=== PATIENT | female | born 1985 | race Hispanic/Latino ===

== ENCOUNTER 2019-05-13 08:58 | Emergency (ER) | payer MEDICAID ==
[2019-05-13 09:17] VITALS: BP 105/62
[2019-05-13 10:04] LABS: Hematocrit 34.6 % (30.3-42.9); Hemoglobin 11.3 gm/dl (10.1-14.3); Mean Corpuscular HGB Conc 33 % (30-34); Mean Corpuscular Volume 88 fl (79-97); Platelet Count 204 K/mm3 (140-440); Red Blood Count 3.95 M/mm3 (3.65-5.03)
[2019-05-13 10:07] LABS: Red Cell Distribution Width 20.6 % (13.2-15.2)
[2019-05-13 10:24] LABS: Calcium 10.1 mg/dL (8.4-10.2)
[2019-05-13 10:48] LABS: Total Cells Counted 100
[2019-05-13 10:49] LABS: Anisocytosis 1+; Band Neutrophils # (Manual) 2.2 K/mm3; Basophils % (Manual) 0 % (0.0-1.8); Eosinophils % (Manual) 0 % (0.0-4.3); Ovalocytes Few; Platelet Estimate Consistent w Auto
[2019-05-13] MEDS ORDERED: NACL 0.9% 1000 ML 1,000 ML IV ONE ×2 (11:02→11:40)
[2019-05-13] MEDS ORDERED: TORADOL IV ONE (11:02)
[2019-05-13] MEDS ORDERED: ZOFRAN IV ONE (11:02)
[2019-05-13] MEDS ORDERED: MORPHINE IV ONE (11:03)
--- NOTE | 2019-05-13 11:03 | Emergency Department Report ---
HPI - General Chief Complaint: Nausea/Vomiting/Diarrhea Time Seen by Provider: 05/13/19 11:02 - HPI HPI: 33 YO COMES TO ER CO N/V FOR 2 DAYS. NO FEVER OR CHILLS PER PT. DENIES ABD PAIN BUT STATES HER RIGHT SIDE HAS BEEN HURTING. DENIES DYSURIA OR FREQUENCY. LMP 9- 10 ED Past Medical Hx - Past Medical History Previous Medical History?: Yes Additional medical history: bradycardia, k stones - Surgical History Past Surgical History?: No Additional Surgical History: Ceasarean - Family History Family history: no significant - Social History Smoking Status: Current Every Day Smoker Substance Use Type: None - Medications Home Medications: Home Medications Medication Instructions Recorded Confirmed Last Taken Type Ciprofloxacin HCl [Ciprofloxacin 500 mg PO Q12HR #14 tab 05/13/19 Unknown Rx TAB] Ondansetron [Zofran Odt] 4 mg PO Q8HR PRN #10 tab.rapdis 05/13/19 Unknown Rx traMADol [Ultram] 50 mg PO Q6HR PRN #10 tablet 05/13/19 Unknown Rx ED Review of Systems ROS: Stated complaint: RT SIDE PAIN/VOMIT Other details as noted in HPI Comment: All other systems reviewed and negative Physical Exam - Physical Exam Vital Signs: Vital Signs 05/13/19 09:16 Temperature 98.5 F Pulse Rate 116 H Respiratory 16 Rate Blood Pressure 105/62 [Left] O2 Sat by Pulse 100 Oximetry Physical Exam: ALERT AND ORIENTED NO FOCAL DEFICIT NO CVA TENDERNESS S1S2 LUNGS CTA ABD SNT NO EDEMA OR JVD ED Course Vital Signs 05/13/19 09:16 Temperature 98.5 F Pulse Rate 116 H Respiratory 16 Rate Blood Pressure 105/62 [Left] O2 Sat by Pulse 100 Oximetry - Reevaluation(s) Reevaluation #1: 05/13/19 16:[address] CAROLYN VALLES DC HOME WITH OUTPT FOLLOW UP Reevaluation #2: HR 100 ON REEXAM ED Medical Decision Making - Lab Data Result diagrams: 05/13/19 09:41 05/13/19 09:41 - Radiology Data Radiology results: report reviewed, image reviewed - Medical Decision Making Vital Signs 05/13/19 09:16 Temperature 98.5 F Pulse Rate 116 H Respiratory 16 Rate Blood Pressure 105/62 [Left] O2 Sat by Pulse 100 Oximetry Vital Signs 05/13/19 09:16 Temperature 98.5 F Pulse Rate 116 H Respiratory 16 Rate Blood Pressure 105/62 [Left] O2 Sat by Pulse 100 Oximetry Labs 05/13/19 05/13/19 05/13/19 09:41 09:41 09:41 WBC 15.8 H RBC 3.95 Hgb 11.3 Hct 34.6 MCV 88 MCH 29 MCHC 33 RDW 20.6 H Plt Count 204 Add Manual Diff Complete Total Counted 100 Seg Neutrophils % X Ray Technician Seg Neuts % (Manual) 78.0 H Band Neutrophils % 14.0 Lymphocytes % (Manual) 4.0 L Reactive Lymphs % (Man) 0 Monocytes % (Manual) 4.0 Eosinophils % (Manual) 0 Basophils % (Manual) 0 Metamyelocytes % 0 Myelocytes % 0 Promyelocytes % 0 Blast Cells % 0 Nucleated RBC % Not Reportable Seg Neutrophils # Man 12.3 H Band Neutrophils # 2.2 Lymphocytes # (Manual) 0.6 L Abs React Lymphs (Man) 0.0 Monocytes # (Manual) 0.6 Eosinophils # (Manual) 0.0 Basophils # (Manual) 0.0 Metamyelocytes # 0.0 Myelocytes # 0.0 Promyelocytes # 0.0 Blast Cells # 0.0 WBC Morphology Not Reportable Hypersegmented Neuts Not Reportable Hyposegmented Neuts Not Reportable Hypogranular Neuts Not Reportable Smudge Cells Not Reportable Toxic Granulation Not Reportable Toxic Vacuolation Not Reportable Dohle Bodies Not Reportable Pelger-Huet Anomaly Not Reportable [place] Rods Not Reportable Platelet Estimate Consistent w auto Clumped Platelets Not Reportable Plt Clumps, EDTA Not Reportable Large Platelets Not Reportable Giant Platelets Not Reportable Platelet Satelliting Not Reportable Plt Morphology Comment Not Reportable RBC Morphology Not Reportable Dimorphic RBCs Not Reportable Polychromasia Not Reportable Hypochromasia Not Reportable Poikilocytosis Not Reportable Anisocytosis 1+ Microcytosis Not Reportable Macrocytosis Not Reportable Spherocytes Not Reportable Pappenheimer Bodies Not Reportable Sickle Cells Not Reportable Target Cells Not Reportable Tear Drop Cells Not Reportable Ovalocytes Few Helmet Cells Not Reportable [place] Bodies Not Reportable [place] Rings Not Reportable [place] Cells Not Reportable Bite Cells Not Reportable Crenated Cell Not Reportable Elliptocytes Not Reportable Acanthocytes (Spur) Not Reportable Rouleaux Not Reportable Hemoglobin C Crystals Not Reportable Schistocytes Not Reportable Malaria parasites Not Reportable Benitez Bodies Not Reportable Hem Pathologist Commnt No Sodium 137 Potassium 3.6 Chloride 98.8 Carbon Dioxide 23 Anion Gap 19 BUN 22 H Creatinine 1.4 H Estimated GFR 43 BUN/Creatinine Ratio 16 Glucose 119 H Calcium 10.1 Total Bilirubin 0.40 AST 20 ALT 12 Alkaline Phosphatase 98 Total Protein 7.3 Albumin 4.0 Albumin/Globulin Ratio 1.2 Lipase 5 L Urine Color Urine Turbidity Urine pH Ur Specific [place] Urine Protein Urine Glucose (UA) Urine Ketones Urine Blood Urine Nitrite Ur Reducing Substances Urine Bilirubin Urine Ictotest Urine Urobilinogen Ur Leukocyte Esterase Urine WBC (Auto) Urine RBC (Auto) U Epithel Cells (Auto) Urine Bacteria (Auto) Urine WBC Clumps Urine Mucus Urine HCG, Qual 05/13/19 11:03 WBC RBC Hgb Hct MCV MCH MCHC RDW Plt Count Add Manual Diff Total Counted Seg Neutrophils % Seg Neuts % (Manual) Band Neutrophils % Lymphocytes % (Manual) Reactive Lymphs % (Man) Monocytes % (Manual) Eosinophils % (Manual) Basophils % (Manual) Metamyelocytes % Myelocytes % Promyelocytes % Blast Cells % Nucleated RBC % Seg Neutrophils # Man Band Neutrophils # Lymphocytes # (Manual) Abs React Lymphs (Man) Monocytes # (Manual) Eosinophils # (Manual) Basophils # (Manual) Metamyelocytes # Myelocytes # Promyelocytes # Blast Cells # WBC Morphology Hypersegmented Neuts Hyposegmented Neuts Hypogranular Neuts Smudge Cells Toxic Granulation Toxic Vacuolation Dohle Bodies Pelger-Huet Anomaly [place] Platelet Estimate Clumped Platelets Plt Clumps, EDTA Large Platelets Giant Platelets Platelet Satelliting Plt Morphology Comment RBC Morphology Dimorphic RBCs Polychromasia Hypochromasia Poikilocytosis Anisocytosis Microcytosis Macrocytosis Spherocytes Pappenheimer Bodies Sickle Cells Target Cells Tear Drop Cells Ovalocytes Helmet Cells [place] Bodies [place] Rings [place] Cells Bite Cells Crenated Cell Elliptocytes Acanthocytes (Spur) Rouleaux Hemoglobin C Crystals Schistocytes Malaria parasites Benitez Bodies Hem Pathologist Commnt Sodium Potassium Chloride Carbon Dioxide Anion Gap BUN Creatinine Estimated GFR BUN/Creatinine Ratio Glucose Calcium Total Bilirubin AST ALT Alkaline Phosphatase Total Protein Albumin Albumin/Globulin Ratio Lipase Urine Color [place] Urine Turbidity Cloudy Urine pH 5.0 Ur Specific [place] 1.016 Urine Protein 100 mg/dl Urine Glucose (UA) Neg Urine Ketones Tr Urine Blood Lg Urine Nitrite Pos Ur Reducing Substances Not Reportable Urine Bilirubin Neg Urine Ictotest Not Reportable Urine Urobilinogen < 2.0 Ur Leukocyte Esterase Lg Urine WBC (Auto) > 182.0 H Urine RBC (Auto) 58.0 U Epithel Cells (Auto) 5.0 Urine Bacteria (Auto) 4+ Urine WBC Clumps 3+ Urine Mucus 1+ Urine HCG, Qual Negative UA NOTED PREG NEG LABS NOTED CR 1.[address] NOTED SUSPECT PT PASSED STONE. MEDICATED IN ER FOR PAIN/NAUSEA/FLUIDS VSS TAKING PO AMBULATORY DC HOME WITH OUTPUT URO FOLLOW UP - Differential Diagnosis RO K STONE/G STONE/PANCREATITIS Critical care attestation.: If time is entered above; I have spent that time in minutes in the direct care of this critically ill patient, excluding procedure time. ED Disposition Clinical Impression: Kidney stone, Hydronephrosis, UTI (urinary tract infection) Disposition: DC-01 TO HOME OR SELFCARE Is pt being admited?: No Does the pt Need Aspirin: No Condition: Stable Instructions: Kidney Stones (ED), Urinary Tract Infection in Women (ED) Prescriptions: Ciprofloxacin HCl [Ciprofloxacin TAB] 500 mg PO Q12HR #14 tab traMADol [Ultram] 50 mg PO Q6HR PRN #10 tablet PRN Reason: Pain Ondansetron [Zofran Odt] 4 mg PO Q8HR PRN #10 tab.rapdis PRN Reason: Vomiting Referrals: NICKI RODRIGUEZ MD [Staff Physician] - 3-5 Days Time of Disposition: 16:10
[2019-05-13 11:24] LABS: HCG Qualitative,Urine Negative (Negative)
[2019-05-13 11:29] LABS: Bacteria,Urine 4+ /HPF (Negative); Bilirubin,Urine NEG (Negative); Blood,Urine LG (Negative); Color,Urine Amber (Yellow); Mucus,Urine 1+ /HPF; Urobilinogen,Urine < 2.0 mg/dL (<2.0)
[2019-05-13 11:32] LABS: WBC,Urine > 182.0 /HPF (0.0-6.0)
--- NOTE | 2019-05-13 14:24 | Cat Scan Report ---
CT ABDOMEN AND PELVIS WITH CONTRAST HISTORY: Abdominal pain COMPARISON: None. TECHNIQUE: Axial CT images were obtained through the abdomen and pelvis after 100 cc of Omnipaque 300 intravenously. Sagittal and coronal reformatted images. All CT scans at this location are performed using CT dose reduction for ALARA by means of automated exposure control. FINDINGS: CT ABDOMEN: Lung Bases: Clear. Liver: No significant abnormality. Biliary: No significant abnormality. Spleen: No significant abnormality. Unenlarged. Pancreas: No significant abnormality. Adrenals: No significant abnormality. Kidneys: The left kidney and collecting system are unremarkable. The right kidney is anteriorly rotat ed. A 5 mm calyceal stone is noted near the inferior pole. There appears to be poor perfusion to the right kidney compared to the left. There is mild right hydronephrosis although no calcified ureteral stone is identified in the right collecting system. Lymphatics: No lymphadenopathy. Vasculature: No significant abnormality. Bowel/Peritoneum: No significant abnormality. No free air. No free fluid. Normal appendix. CT PELVIS: : A 2.9 cm left ovarian cyst is identified. A 1.8 cm right ovarian cyst is identified. The uterus i s retroverted and unremarkable. The bladder is within normal limits. Osseous Structures: No significant abnormality. Additional Findings: None IMPRESSION: Mild right hydronephrosis although no obvious obstructing lesion is identified in the right ureter. 5 mm calyceal stone at the inferior pole of the right kidney. Bilateral ovarian cysts. Signer Name: Cesar Zapata Jr, MD Signed: 05/13/2019 2:19 PM Workstation Name: [id number]
[2019-05-13] MEDS ORDERED: ROCEPHIN/NS 1 GM/50 ML 1 GM/50 ML BAG IV ONE (14:39)
[2019-05-13] MEDS ORDERED: NORCO 5/325 PO ONE (16:12)
== END 2019-05-13 16:28 | disposition home or self-care (01) ==
LOC: ED 08:58
DX: N13.2 Hydronephrosis with renal and ureteral calculous obstruction (principal); N39.0 Urinary tract infection, site not specified; R00.1 Bradycardia, unspecified; R11.2 Nausea with vomiting, unspecified; F17.200 Nicotine dependence, unspecified, uncomplicated; Z87.442 Personal history of urinary calculi; Z79.899 Other long term (current) drug therapy
CPT/HCPCS: 36415; 74177; 80053; 81001; 81025; 83690; 85007; 85025; 96361; 96365; 96375; 99284; J0696; J1885; J2270; J2405; J7030; Q9967